=== PATIENT | female | born 1970 | race Caucasian/White ===

== ENCOUNTER 2018-11-14 05:58 | Day surgery (SDC) | payer MEDICARE, MEDICAID ==
[~2018-11-14] VITALS: Ht 167.6 cm; Wt 106.6 kg
[~2018-11-14 05:58] MED LIST: ALLERGY NA50 MCG/ACT; C 250 PO; CALCI17 PO; CALCIUM PLUS D PO; CLARITIN10 M1 PO; DEPAKOTE500 MG PO; DIVALPROEX SOD250 MG PO; FOSAMAX PLUS PO; IMITREX25 MG PO; KLONOPIN0.5 MG PO; LORTAB 7.57.5 MG PO; ORTHO TRI-CY PO; OXYBUTYNIN5 M1 PO; PAROXETINE10 MG PO; PRAVASTATIN20 MG PO; PRILOSEC40 MG PO; SILVADENE1 % EX; THERACRAN650 MG PO; TRENTAL400 MG PO; VITAMIN D400 UNI3 PO
[2018-11-14 09:12] VITALS: BP 105/51
== END 2018-11-14 09:24 | disposition home or self-care (01) ==
LOC: ENDO 05:58 → ORM 10:00 → ENDO 10:15 → ORM 10:15 → ENDO 10:55
PROVIDERS: ATTEND Internal Medicine Gastroenterology
PROC: 0DB48ZX Excision of Esophagogastric Junction, Via Natural or Artificial Opening Endoscopic, Diagnostic (ICD-10-PCS; principal; 2018-11-14)
PROC: 0DB78ZX Excision of Stomach, Pylorus, Via Natural or Artificial Opening Endoscopic, Diagnostic (ICD-10-PCS; 2018-11-14)
PROC: 0DJD8ZZ Inspection of Lower Intestinal Tract, Via Natural or Artificial Opening Endoscopic (ICD-10-PCS; 2018-11-14)
DX: Z12.11 Encounter for screening for malignant neoplasm of colon (principal); Q43.8 Other specified congenital malformations of intestine; K64.4 Residual hemorrhoidal skin tags; K64.8 Other hemorrhoids; K21.9 Gastro-esophageal reflux disease without esophagitis; K29.50 Unspecified chronic gastritis without bleeding; K31.9 Disease of stomach and duodenum, unspecified; K31.7 Polyp of stomach and duodenum; E78.5 Hyperlipidemia, unspecified; F31.9 Bipolar disorder, unspecified; F70 Mild intellectual disabilities; Z79.899 Other long term (current) drug therapy
CPT/HCPCS: 43239; G0121; J0461

== ENCOUNTER 2023-03-19 08:06 | Observation (INO) | payer MEDICARE, MEDICAID ==
[2023-03-19] VITALS (13 sets, daily range): BP systolic 85–122; BP diastolic 47–80
[~2023-03-19] VITALS: Ht 167.6 cm; Wt 87.2 kg
[~2023-03-19 08:06] MED LIST changes: -DIVALPROEX SOD250 MG PO; +DIVALPROEX SOD500 M3 PO
[2023-03-19] MEDS ORDERED: ATORVASTATIN CA40 MG PO (08:37)
[2023-03-19 08:40] LABS: ALBUMIN 3.9 g/dL (3.2-5.0); ALKALINE PHOSPHATASE 52 u/l (38-126); ANION GAP 12 (6-22 (CALC)); BILIRUBIN, TOTAL 0.2 mg/dL (0.02-1.3); BUN 23 mg/dL (7-17); BUN/CREATININE RATIO 33 (12-20 (CALC)); CARBON DIOXIDE 26 mmol/l (22-30); CHLORIDE 107 mmol/l (95-108); CREATININE 0.7 mg/dL (0.5-1.0); GFR FOR AFR.AMER. > 60 ML/MIN (>=60 (CALC)); GFR OTHER RACES > 60 ML/MIN (>=60 (CALC)); SGOT/AST 23 u/l (14-36); SODIUM 141 mmol/l (137-146); TOTAL PROTEIN 7.1 g/dL (6.3-8.2)
[2023-03-19 08:40] LABS: PROTHROMBIN TIME 9.8 SECONDS (9.0-12.5)
[2023-03-19 08:45] LABS: BASO% 0.8 % (0-3); EOS% 9.4 % (0-8); HEMATOCRIT 40.7 % (37.0-47.0); IMMATURE GRANULOCYTES 0.3 % (0.0-5.0); LYMPH% 27.8 % (15-41); MEAN CELL VOLUME 92.1 fL CALC (80.0-100.0); MEAN CORPUSCULAR HGB 29.4 pG CALC (26.0-32.0); MEAN CORPUSCULAR HGB CONC 31.9 g/dL CAL (32.0-36.0); MONO% 9.4 % (2-13); NEUT# 3.42 thou/uL (2.00-7.15); NEUT% 52.3 % (42-76); RED BLOOD COUNT 4.42 mill/uL (4.20-5.60); RED CELL DISTRI WIDTH 13.2 % (11.5-15.5)
[2023-03-19] MEDS ORDERED: PRAVASTATIN40 MG PO (08:57)
[2023-03-19 10:16] LABS: URINE BILIRUBIN - DIPSTICK NEGATIVE (NEGATIVE); URINE BLOOD DIPSTICK MODERATE (NEGATIVE); URINE COLOR YELLOW; URINE GLUCOSE - DIPSTICK NEGATIVE (NEGATIVE); URINE KETONE NEGATIVE (NEGATIVE); URINE LEUK ESTERASE NEGATIVE (NEGATIVE); URINE PROTEIN - DIPSTICK NEGATIVE (NEG-TRACE); URINE SPECIFIC GRAVITY 1.015; URINE UROBILINOGEN - DIPSTICK 0.2 E.U./dL (0.2)
[2023-03-19 10:19] LABS: URINE NITRITE - DIPSTICK NEGATIVE (Negative)
[2023-03-19 10:20] LABS: URINE EPITHELIAL CELLS FEW EPI/hpf (0-FEW)
[2023-03-20 03:42] VITALS: BP 96/67
[2023-03-20 05:33] LABS: BASO% 0.4 % (0-3); EOS% 7.2 % (0-8); HEMATOCRIT 40.3 % (37.0-47.0); HEMOGLOBIN 12.8 g/dl (12.0-16.0); IMMATURE GRANULOCYTES 0.5 % (0.0-5.0); LYMPH% 27.3 % (15-41); MEAN CELL VOLUME 93.9 fL CALC (80.0-100.0); MEAN CORPUSCULAR HGB 29.8 pG CALC (26.0-32.0); MEAN CORPUSCULAR HGB CONC 31.8 g/dL CAL (32.0-36.0); MONO% 10.4 % (2-13); NEUT# 4.21 thou/uL (2.00-7.15); NEUT% 54.2 % (42-76); RED BLOOD COUNT 4.29 mill/uL (4.20-5.60); RED CELL DISTRI WIDTH 13.5 % (11.5-15.5)
[2023-03-20 05:50] LABS: ALBUMIN 3.5 g/dL (3.2-5.0); ALKALINE PHOSPHATASE 44 u/l (38-126); ANION GAP 9 (6-22 (CALC)); BUN 18 mg/dL (7-17); BUN/CREATININE RATIO 24 (12-20 (CALC)); CALCULATED LDLCHOLESTEROL 113 mg/dL (62-129 (CALC)); CARBON DIOXIDE 28 mmol/l (22-30); CHLORIDE 107 mmol/l (95-108); CREATININE 0.8 mg/dL (0.5-1.0); GFR FOR AFR.AMER. > 60 ML/MIN (>=60 (CALC)); GFR OTHER RACES > 60 ML/MIN (>=60 (CALC)); HDL CHOLESTEROL 43 mg/dL (39.0-59.0); MAGNESIUM 1.9 mg/dL (1.6-2.3); POTASSIUM 4.1 mmol/l (3.5-5.1); SGOT/AST 25 u/l (14-36); SODIUM 140 mmol/l (137-146); TOTAL CHOLESTEROL 173 mg/dl (0-199); TOTAL PROTEIN 6.9 g/dL (6.3-8.2); TOTAL TRIGLYCERIDES 88 mg/dl (0-149); VLDL CHOLESTROL 18 mg/dl (2-49 (CALC))
[2023-03-20 05:52] LABS: BILIRUBIN, TOTAL 0.3 mg/dL (0.02-1.3)
[2023-03-20 06:35] VITALS: BP 109/67
[2023-03-20 11:33] VITALS: BP 122/66
[2023-03-20 15:15] VITALS: BP 100/64
[2023-03-20 19:02] VITALS: BP 116/56
[2023-03-20 23:53] VITALS: BP 121/76
[2023-03-21 04:03] VITALS: BP 92/49
[2023-03-21 04:04] VITALS: BP 127/71
[2023-03-21 05:30] LABS: BASO% 0.6 % (0-3); EOS% 8.8 % (0-8); HEMATOCRIT 37.7 % (37.0-47.0); HEMOGLOBIN 11.9 g/dl (12.0-16.0); IMMATURE GRANULOCYTES 0.3 % (0.0-5.0); LYMPH% 35.1 % (15-41); MEAN CELL VOLUME 93.1 fL CALC (80.0-100.0); MEAN CORPUSCULAR HGB 29.4 pG CALC (26.0-32.0); MEAN CORPUSCULAR HGB CONC 31.6 g/dL CAL (32.0-36.0); NEUT# 3.36 thou/uL (2.00-7.15); NEUT% 47.2 % (42-76); RED BLOOD COUNT 4.05 mill/uL (4.20-5.60); RED CELL DISTRI WIDTH 13.6 % (11.5-15.5)
[2023-03-21 05:55] LABS: ALBUMIN 3.3 g/dL (3.2-5.0); ALKALINE PHOSPHATASE 42 u/l (38-126); ANION GAP 9 (6-22 (CALC)); BILIRUBIN, TOTAL 0.2 mg/dL (0.02-1.3); BUN 17 mg/dL (7-17); BUN/CREATININE RATIO 24 (12-20 (CALC)); CARBON DIOXIDE 27 mmol/l (22-30); CHLORIDE 107 mmol/l (95-108); CREATININE 0.7 mg/dL (0.5-1.0); GFR FOR AFR.AMER. > 60 ML/MIN (>=60 (CALC)); GFR OTHER RACES > 60 ML/MIN (>=60 (CALC)); POTASSIUM 3.9 mmol/l (3.5-5.1); SGOT/AST 25 u/l (14-36); SODIUM 140 mmol/l (137-146); TOTAL PROTEIN 6.4 g/dL (6.3-8.2)
[2023-03-21 07:54] VITALS: BP 109/75
[2023-03-21 11:19] VITALS: BP 130/76
== END 2023-03-21 13:03 | disposition home health service (06) ==
LOC: ED 08:06 → ED-I 12:26 → ED 12:42 → MS2 12:43
PROVIDERS: Family Medicine; Nurse Practitioner Family; ADMIT Internal Medicine; ATTEND Internal Medicine
DX: R42 Dizziness and giddiness (principal); K21.9 Gastro-esophageal reflux disease without esophagitis; G43.909 Migraine, unspecified, not intractable, without status migrainosus; E78.5 Hyperlipidemia, unspecified; F31.9 Bipolar disorder, unspecified; F84.0 Autistic disorder
CPT/HCPCS: J2060; Q9967